=== PATIENT | female | born 1950 | race Caucasian/White ===

== ENCOUNTER 2017-02-17 10:01 | Inpatient (IN) | payer MEDICARE ==
[~2017-02-17] VITALS: Ht 167.6 cm; Wt 103.8 kg
[2017-02-17] MEDS ORDERED: MECL-76 PO (10:24)
[2017-02-17] MEDS ORDERED: SODIUM CHLORIDE 0.9% 1,000ML IVBOLUS ONE (11:00)
[2017-02-17] MEDS ORDERED: LORazepam 2 MG/ML, 1ML IVPush ONE (11:00)
[2017-02-17] MEDS ORDERED: ONDANSETRON 2MG/ML, 2ML IVPush ONE (11:00)
[2017-02-17] MEDS ORDERED: SODIUM CHLORIDE FLUSH 10ML SYR IVF ONE (11:00)
[2017-02-17] MEDS ORDERED: ONDANSETRON 2MG/ML, 2ML ONE (11:06)
[2017-02-17] MEDS ORDERED: LORazepam 2 MG/ML, 1ML ONE ×2 (11:07→14:26)
[2017-02-17 11:43] LABS: BLOOD UREA NITROGEN 10 mg/dL (7-18)
[2017-02-17] MEDS ORDERED: MORPHINE SULFATE 4 MG/ML, 1ML ONE (11:56)
[2017-02-17] MEDS ORDERED: MORPHINE SULFATE 4 MG/ML, 1ML IVPush PRN (12:00)
[2017-02-17] MEDS ORDERED: OMNIPAQUE 350 MG/ML, 100ML BOTTLE ONE (12:53)
[2017-02-17] MEDS ORDERED: DEXAMETHASONE 4 MG/ML, 5ML ONE (13:26)
[2017-02-17] MEDS ORDERED: DEXAMETHASONE 4 MG/ML, 1ML IV ONE (13:30)
[2017-02-17] MEDS ORDERED: ANAS1TAB PO (13:42)
[2017-02-17] MEDS ORDERED: BISACODYL 10 MG SUPP PR PRN (14:00)
[2017-02-17] MEDS ORDERED: ACETAMINOPHEN 325 MG TABLET PO PRN (14:00)
[2017-02-17] MEDS ORDERED: POLYETHYLENE GLYCOL 17 GM PACKET PO PRN (14:00)
[2017-02-17] MEDS ORDERED: ONDANSETRON 2MG/ML, 2ML IVPush PRN (14:00)
[2017-02-17] MEDS ORDERED: LORazepam 2 MG/ML, 1ML IVPush STA (14:39)
[2017-02-17] MEDS ORDERED: GADOBUTROL 10 MMOL/10 ML PFS ONE (15:36)
[2017-02-17] MEDS ORDERED: LABETALOL 5MG/ML, 20ML IVPush PRN (17:00)
[2017-02-17] MEDS: DEXAMETHASONE 4 MG/ML, 1ML IVPush SCH ×2 (18:11→21:37)
[2017-02-17] MEDS ORDERED: SODIUM CHLORIDE 0.9% 1,000 ML IV SCH ×2 (18:30→19:00)
[2017-02-17] MEDS: FAMOTIDINE 20 MG/2 ML IVPush SCH (21:37)
[2017-02-17 21:44] VITALS: BP 142/72
[2017-02-18] MEDS: DEXAMETHASONE 4 MG/ML, 1ML IVPush SCH ×6 (03:10→21:44)
[2017-02-18 03:58] VITALS: BP 151/79
[2017-02-18 04:52] LABS: ASPARTATE AMINO TRANSFERASE 16 U/L (15-37); BLOOD UREA NITROGEN 11 mg/dL (7-18)
[2017-02-18] MEDS ORDERED: THROMBIN 20,000 UNIT VIAL TP ONE ×2 (07:58→11:28)
[2017-02-18] MEDS ORDERED: BACITRACIN 50,000 UNIT ONE (07:58)
[2017-02-18] MEDS ORDERED: BACITRACIN OINT 500U/GM, 15 GM ONE (07:58)
[2017-02-18] MEDS ORDERED: BUPIVACAINE/PF-EPI 0.5% 1:200K ONE (07:58)
[2017-02-18] MEDS ORDERED: ALBUMIN HUMAN 5% 500 ML ONE (08:39)
[2017-02-18] MEDS ORDERED: MANNITOL PMX 20% 500 ML ONE (08:39)
[2017-02-18] MEDS ORDERED: REMIFENTANIL 2 MG ONE (08:50)
[2017-02-18] MEDS ORDERED: FENTANYL PF 250 MCG/5ML ONE (08:50)
[2017-02-18] MEDS: FAMOTIDINE 20 MG/2 ML IVPush SCH ×2 (09:00→21:05)
[2017-02-18] MEDS ORDERED: METOCLOPRAMIDE 5 MG/ML, 2ML ONE (09:18)
[2017-02-18] MEDS ORDERED: CEFAZOLIN 1,000 MG ONE (09:18)
[2017-02-18] MEDS ORDERED: ROCURONIUM 10 MG/ML ONE (09:18)
[2017-02-18] MEDS ORDERED: ONDANSETRON 2MG/ML, 2ML ONE (09:18)
[2017-02-18] MEDS ORDERED: DEXAMETHASONE 4 MG/ML, 5ML ONE (09:18)
[2017-02-18] MEDS ORDERED: PROPOFOL 10 MG/ML, 20ML ONE (09:18)
[2017-02-18] MEDS ORDERED: GLYCOPYRROLATE 0.2MG/1ML ONE (09:18)
[2017-02-18] MEDS ORDERED: NEOSTIGMINE 1 MG/ML, 10ML ONE (09:18)
[2017-02-18] MEDS: FLUTICASONE/VILANTEROL 100-25MCG/INH INH SCH (09:30)
[2017-02-18] MEDS ORDERED: HYDROmorphone 1 MG/ML, 1ML IV PRN (13:00)
[2017-02-18] MEDS ORDERED: ONDANSETRON 2MG/ML, 2ML IVPush PRN (13:00)
[2017-02-18] MEDS ORDERED: LABETALOL 5MG/ML, 20ML IV PRN ×2 (13:00→14:30)
[2017-02-18] MEDS ORDERED: PROMETHAZINE 25 MG/ML, 1ML IV PRN (13:00)
[2017-02-18] MEDS ORDERED: OXYcodone 5 MG/5 ML ORAL.SOL UDC PO PRN (13:00)
[2017-02-18] MEDS ORDERED: hydrALAzine 20 MG/ML, 1ML IV PRN (13:00)
[2017-02-18] MEDS ORDERED: FENTANYL PF 100 MCG/2ML ONE (13:38)
[2017-02-18] MEDS: FENTANYL PF 100 MCG/2ML IV PRN ×2 (13:50→13:55)
[2017-02-18] MEDS ORDERED: HYDROcodone/APAP 5/325 TABLET PO PRN (14:30)
[2017-02-18] MEDS: morphine SULFATE 10 MG/ML, 1ML IVPush PRN ×3 (14:43→19:48)
[2017-02-18] MEDS: CEFUROXIME 1.5 GM in SODIUM CHLORIDE 0.9% 50 ML IVPB SCH ×2 (15:41→22:42)
[2017-02-18] MEDS: ONDANSETRON 2MG/ML, 2ML IVPush PRN (19:48)
[2017-02-18] MEDS: MECLIZINE CHEWABLE 25 MG TAB PO SCH (21:05)
[2017-02-18] MEDS: OXYcodone/APAP 7.5/325MG TABLET PO PRN (22:48)
[2017-02-19] MEDS: DEXAMETHASONE 4 MG/ML, 1ML IVPush SCH ×6 (02:40→22:13)
[2017-02-19 04:00] VITALS: BP 116/48
[2017-02-19 04:59] LABS: ASPARTATE AMINO TRANSFERASE 20 U/L (15-37); BLOOD UREA NITROGEN 15 mg/dL (7-18)
[2017-02-19 05:44] LABS: DIFF TOTAL CELLS COUNTED 100 CELL DIFF
[2017-02-19 05:45] LABS: VERIFY COUNTS? YES
[2017-02-19] MEDS: OXYcodone/APAP 7.5/325MG TABLET PO PRN (06:11)
[2017-02-19] MEDS: ONDANSETRON 2MG/ML, 2ML IVPush PRN (06:11)
[2017-02-19] MEDS: MECLIZINE CHEWABLE 25 MG TAB PO SCH ×2 (10:54→22:13)
[2017-02-19] MEDS: FAMOTIDINE 20 MG/2 ML IVPush SCH (10:54)
[2017-02-19] MEDS: ANASTROZOLE 1 MG TABLET PO SCH (11:00)
[2017-02-19] MEDS: FLUTICASONE/VILANTEROL 100-25MCG/INH INH SCH (11:01)
[2017-02-19] MEDS ORDERED: LORazepam 2 MG/ML, 1ML IVPush ONE (12:30)
[2017-02-19] MEDS ORDERED: FENTANYL PF 100 MCG/2ML ONE (13:01)
[2017-02-19] MEDS ORDERED: ALBUTEROL SULFATE 2.5MG/0.5ML ONE (13:02)
[2017-02-19] MEDS ORDERED: GADOBUTROL 10 MMOL/10 ML PFS ONE (13:33)
[2017-02-19] MEDS ORDERED: FAMOTIDINE 20 MG TABLET PO SCH (21:00)
[2017-02-20] MEDS: DEXAMETHASONE 4 MG/ML, 1ML IVPush SCH ×6 (02:21→23:00)
[2017-02-20 04:00] VITALS: BP 138/72
[2017-02-20 04:49] LABS: BLOOD UREA NITROGEN 19 mg/dL (7-18)
[2017-02-20] MEDS: OXYcodone/APAP 7.5/325MG TABLET PO PRN (06:10)
[2017-02-20] MEDS ORDERED: LACTULOSE 20 GM/30 ML UDC PO PRN (07:30)
[2017-02-20] MEDS: FLUTICASONE/VILANTEROL 100-25MCG/INH INH SCH (08:24)
[2017-02-20] MEDS: MECLIZINE CHEWABLE 25 MG TAB PO SCH ×2 (08:24→20:18)
[2017-02-20] MEDS: ANASTROZOLE 1 MG TABLET PO SCH (08:27)
[2017-02-20 12:35] VITALS: BP 148/86
[2017-02-20] MEDS: ONDANSETRON 2MG/ML, 2ML IVPush PRN ×2 (17:28→23:00)
[2017-02-20 19:59] VITALS: BP 146/84
[2017-02-20] MEDS: PROMETHAZINE 25 MG/ML, 1ML IM PRN (20:18)
[2017-02-21 02:50] VITALS: BP 134/83
[2017-02-21] MEDS: DEXAMETHASONE 4 MG/ML, 1ML IVPush SCH ×4 (03:12→14:46)
[2017-02-21] MEDS: PROMETHAZINE 25 MG/ML, 1ML IM PRN (03:13)
[2017-02-21 05:21] LABS: BLOOD UREA NITROGEN 16 mg/dL (7-18)
[2017-02-21 07:20] VITALS: BP 134/79
[2017-02-21] MEDS: MECLIZINE CHEWABLE 25 MG TAB PO SCH (07:58)
[2017-02-21] MEDS: FLUTICASONE/VILANTEROL 100-25MCG/INH INH SCH (07:58)
[2017-02-21] MEDS: ANASTROZOLE 1 MG TABLET PO SCH (07:59)
[2017-02-21] MEDS: OXYcodone/APAP 7.5/325MG TABLET PO PRN (12:02)
[2017-02-21 14:39] VITALS: BP 145/83
[2017-02-21] MEDS ORDERED: HYDR-883 PO (15:36)
== END 2017-02-21 16:26 | disposition home or self-care (01) | DRG 25 ==
LOC: ED 13:46 → EDIP 13:47 → ED 14:00 → CCU 16:49 → 3NW 02-20 11:48
PROVIDERS: ADMIT Hospitalist; ATTEND Hospitalist
PROC: 00U20JZ Supplement Dura Mater with Synthetic Substitute, Open Approach (ICD-10-PCS; 2017-02-18)
PROC: 00BC0ZZ Excision of Cerebellum, Open Approach (ICD-10-PCS; principal; 2017-02-18 08:30)
DX: C79.31 Secondary malignant neoplasm of brain (principal); G93.5 Compression of brain; G93.6 Cerebral edema; G91.1 Obstructive hydrocephalus; D72.829 Elevated white blood cell count, unspecified; F41.9 Anxiety disorder, unspecified; E11.9 Type 2 diabetes mellitus without complications; J45.909 Unspecified asthma, uncomplicated; K75.81 Nonalcoholic steatohepatitis (NASH); K80.20 Calculus of gallbladder without cholecystitis without obstruction; T38.0X5A Adverse effect of glucocorticoids and synthetic analogues, initial encounter; Z82.3 Family history of stroke; Z80.0 Family history of malignant neoplasm of digestive organs; Z85.3 Personal history of malignant neoplasm of breast; Z85.828 Personal history of other malignant neoplasm of skin; Z87.891 Personal history of nicotine dependence; Z91.81 History of falling
CPT/HCPCS: 36415; 70450; 70498; 70553; 80048; 80053; 82040; 83036; 83735; 84443; 85025; 85610; 85730; 86850; 86900; 87081; 88307; 88331; 88341; 88342; 88360; 93005; 96361; 96374; 96375; 96376; A9585; C1713; J0690; J0697; J1100; J2405; J2550; J2704; J2710; J3010; J3490; P9045; Q9967; 92523-GN; C1781; G0461; J2060; J2270; J2765; J7030; S0028

== ENCOUNTER → 2017-03-05 | Outpatient (CLI) | payer MEDICARE ==
[~2017-03-05] MED LIST: ANAS1TAB PO; HYDR-883 PO; MECL-76 PO
== END | disposition home or self-care (01) ==
LOC: PETCFH 08:37
PROVIDERS: ATTEND Specialist
DX: C50.911 Malignant neoplasm of unspecified site of right female breast (principal); G93.9 Disorder of brain, unspecified; M79.89 Other specified soft tissue disorders
CPT/HCPCS: 78815; A9552

== ENCOUNTER 2017-03-17 08:39 | Emergency (ER) | payer MEDICARE ==
[~2017-03-17] VITALS: Ht 165.1 cm; Wt 103.7 kg
[2017-03-17 10:08] LABS: BLOOD UREA NITROGEN 16 mg/dL (7-18)
[2017-03-17] MEDS ORDERED: PINK LADY ENEMA 1,000 ML PR ONE (11:00)
[2017-03-17 12:19] VITALS: BP 141/73
== END 2017-03-17 12:22 | disposition home or self-care (01) ==
LOC: ED 08:59
DX: R33.9 Retention of urine, unspecified (principal); K59.00 Constipation, unspecified; Z85.3 Personal history of malignant neoplasm of breast
CPT/HCPCS: 36415; 51702; 80048; 81003; 82040; 85025

== ENCOUNTER → 2017-03-20 | Outpatient (CLI) | payer MEDICARE ==
[~2017-03-20] MED LIST changes: +GADOBUTROL 10 MMOL/10 ML PFS ONE
== END | disposition home or self-care (01) ==
LOC: CFH 13:01
PROVIDERS: ATTEND Radiology Radiation Oncology
DX: C79.51 Secondary malignant neoplasm of bone (principal); C79.31 Secondary malignant neoplasm of brain; C50.911 Malignant neoplasm of unspecified site of right female breast
CPT/HCPCS: 72158; A9585

== ENCOUNTER → 2017-03-21 | Outpatient (CLI) | payer MEDICARE | END | disposition home or self-care (01) | LOC: RAD 11:55 | PROVIDERS: ATTEND Radiology Radiation Oncology | DX: C79.51 Secondary malignant neoplasm of bone (principal); C79.31 Secondary malignant neoplasm of brain; C50.919 Malignant neoplasm of unspecified site of unspecified female breast; M48.02 Spinal stenosis, cervical region; M25.78 Osteophyte, vertebrae | CPT/HCPCS: 72156; 72157; A9585 ==